=== PATIENT | male | born 1965 | race Caucasian/White ===

== ENCOUNTER 2020-06-02 09:54 | Inpatient (IN) | payer OTHER, SELFPAY ==
[~2020-06-02 09:54] MED LIST: Iopamidol 370 76% 100 ML VIAL ONE
[2020-06-02] MEDS ORDERED: Morphine 4 MG/ML VIAL ONE ×2 (10:08→15:54)
[2020-06-02 10:45] LABS: #Eosinphils 0.1 thou/uL (0.0-0.7); #Lymphocytes 1.6 thou/uL (1.20-3.40); #Monocytes 0.6 thou/uL (0.11-0.59); #Neutrophils 2.2 thou/uL (1.40-6.50); %Basophils 0.4 % (0.0-1.0); %Eosinophils 1.8 % (0.0-10.0); %Lymphocytes 36.1 % (21.0-51.0); %Monocytes 12.4 % (0.0-10.0); %Neutrophils 49.3 % (42.0-75.0); Hemoglobin 12.7 g/dL (14.0-18.0); Mean Corpuscular HGB CONC 32.6 g/dL (32.0-36.0); Mean Corpuscular Hemoglobin 33.9 pg (27.0-31.0); Mean Platelet Volume 7.5 fL (7.4-10.4); Platelet Count 196 thou/uL (130-400); RBC Distribution Width 11.9 % (11.5-14.5); Red Blood Cell (RBC) Count 3.74 mill/uL (4.70-6.10); White Blood Cell (WBC) Count 4.4 thou/uL (4.8-10.8)
--- NOTE | 2020-06-02 10:50 | RAD ---
Exam: Chest one view HISTORY:Dyspnea. Pain. Comparison: None FINDINGS: Cardiac silhouette:Enlarged. Aorta: Atherosclerotic and elongated. Pulmonary vessels: Normal Costophrenic angles: Clear LUNGS: Chronic changes are suspected, without mass or consolidation. Pneumothorax: None Osseous abnormalities: None Findings: There appears be a hiatal hernia, incompletely evaluated IMPRESSION: 1. Atherosclerosis 2. Hiatal hernia.
[2020-06-02 11:07] LABS: ALT (SGPT) 9 U/L (8-55); AST (SGOT) 16 U/L (5-34); Albumin 3.5 g/dL (3.5-5.0); Alkaline Phosphatase 79 U/L (40-110); Anion Gap 13 mmol/L (10-20); BUN (Urea Nitrogen) 12 mg/dL (8.4-25.7); Bilirubin, Total 1.4 mg/dL (0.2-1.2); Calc. Creatinine Clearance 0 mL/min (70-130); Calcium 9.2 mg/dL (7.8-10.44); Carbon Dioxide 24 mmol/L (22-29); Chloride 105 mmol/L (98-107); Estimated GFR-MDRD Greater than 90; Globulin 3.4 g/dL (2.4-3.5); Glucose 165 mg/dL (70-105); Lipase 17 U/L (8-78); Potassium 3.9 mmol/L (3.5-5.1); Protein, Total 6.9 g/dL (6.0-8.3); Sodium 138 mmol/L (136-145)
--- NOTE | 2020-06-02 11:48 | CT ---
EXAM: CT ABDOMEN AND PELVIS HISTORY: Distention. Pain. COMPARISON: None. Procedure: Multiple contiguous axial images were obtained and a CT of the abdomen and pelvis with IV contrast. C oronal reformats were performed. FINDINGS: Lower Chest: within normal limits. Vessels: Normal caliber aorta. Minimal atherosclerosis Heart: Normal Abdomen: Portal vein:Patent. There is evidence of splenic and gastroesophageal varices Gallbladder: Markedly distended. Liver: Cirrhotic changes to the liver. Heterogeneous attenuation suggesting areas of fatty infiltrati on and fatty sparing. A definite enhancing hepatic mass is not appreciated. Evaluation is limited due to underlying heterogeneity. If there is concern, abdomen MRI can be performed, especially given underlying cirrhosis. Pancreas: within normal limits. Spleen: Appropriate enhancement. Spleen is enlarged measuring 17.1 cm. Adrenals: within normal limits. Kidneys: Symmetric enhancement. No obstructive uropathy. Peritoneum: Extensive ascites. Bowel: Limited evaluation by the lack of oral contrast administration. There is evidence of previous bariatric surgical change. There is a moderate hiatal hernia. Multiple normal caliber small bowel loops. Normal ileocecal junction. Scattered fecal material in a nondistended, nondilated colon. Brigitte l caliber appendix. Mesentery and Retroperitoneum: No enlarged mesenteric or retroperitoneal lymph nodes. Abdominal Wall: within normal limits. Pelvis: Reproductive Organs: Reproductive organs are unremarkable. Pelvis: No mass, lymphadenopathy, free air or free fluid. Bladder: within normal limits. Bones: within normal limits. IMPRESSION: 1. Extensive ascites. 2. Distended gallbladder. Consider gallbladder ultrasound. 3. Cirrhosis with splenomegaly, splenic and gastroesophageal varices. 4. Moderate hiatal hernia. 5. Normal caliber appendix. 6. Heterogeneous attenuation of the liver. Abdomen MRI is recommended for better interrogation of hep atic parenchyma given underlying cirrhosis. Transcribed Date/Time: 06/02/2020 12:07 PM
[2020-06-02 12:55] LABS: Bilirubin Negative (Negative); Blood, Urine Negative (Negative); Clarity Clear (Clear); Glucose, Urine (Dipstick) Normal (Negative); Ketone, Urine Negative (Negative); Leukocyte Negative Leu/uL (Negative); Nitrite Negative (Negative); Protein, Urine (Dipstick) 20 mg/dL (Neg-Trace); pH, Urine 5.5 (5.0-9.0)
[2020-06-02 12:56] LABS: Specific Gravity, Urine Greater than 1.060 (1.002-1.036)
--- NOTE | 2020-06-02 14:30 | ULT ---
EXAM: US Gallbladder RUQ CLINICAL HISTORY: Distended gallbladder on recent CT. Evaluate for cholecystitis. COMPARISON: None Correlation: Abdomen and pelvic CT 06/02/2020 FINDINGS: Pancreas: Obscured by bowel gas Liver:Cirrhotic changes to the liver. Right hepatic lobe: 15.6 cm Gallbladder: Markedly distended. No sonographic evidence of cholelithiasis or sludge. Gallbladder wal l thickening measuring 0.42 cm. Chawla's sign:Negative Portal Vein: Patent. Appropriate directional flow Bile ducts: Probable evaluation. Right kidney: No hydronephrosis. Right kidney measures 8.9 cm in length. Additional findings: Extensive ascites. IMPRESSION: 1. Limited evaluation by marked ascites. 2. Distended gallbladder without definite evidence of cholecystitis. Thickening the gallbladder wall likely due to presence of ascites. If there is concern for acalculous cholecystitis, consider HIDA scan. 3. Suboptimal evaluation the common bile duct.
--- NOTE | 2020-06-02 17:30 | PDOC.HHP ---
Hospitalist HPI - History of Present Illness Abdominal distention History of Present Illness: This is a 54-year-old male patient with a history of alcoholic decompensated liver cirrhosis, Congestive heart failure, who presents with worsening abdominal distention. Patient was in his usual state of health when in the past few days he started feeling worsening distention which limits his ability to breathe. He also notes having ongoing pain in his lower abdomen which is tender to touch. Pain is about 8/10 in intensity, nonradiating, not associated with dysuria no apparent aggravating or reducing factors. He also notes upper abdominal pain with increasing distention worse with inspiration. He denies any fevers, nausea or vomiting. He also denies any diarrhea, melena stools or constipation. He ho wever notes that his urine is dark. However denies any dysuria frequency. He denies any cough or associated chest pain. He also notes that with worsening symptoms he has been feeling depressed. He however denies any suicidal ideation. He presented to the ED for evaluation. Of note, patient notes that he has had paracentesis about 2 months ago for which 4 L was drained. He states that he was discharged with significant residual ascitic fluid. At home he takes lactulose, Lasix and spironolactone for his ascites. He notes he has been adherent. The medications help however not been working. At presentation His vitals were within normal limits. Labs showed WBC of 4.4, hemoglobin 12.7 platelets of 196, bilirubin increased at 1.4, BNP 120, urine showed no indication of infection. CT abdomen showed extensive ascites and distended gallbladder with splenomegaly. Splenic and gastroesophageal varices. There was moderate hiatal hernia with heterogeneous attenuation of the liver. An abdominal MRI was recommended for further interrogation of his hepatic parenchyma. Chest x-ray revealed no acute cardiopulmonary events. Given severe lower abdominal pain in the ED, he was given morphine and some IV normal saline1 L. Hospitalist team was consulted for admission Hospitalist ROS - Review of Systems Constitutional: denies: fever, chills, sweats Respiratory: denies: cough, shortness of breath, hemoptysis, SOB with excertion Cardiovascular: reports: orthopnea. denies: chest pain, palpitations, paroxysmal noc. dyspnea Gastrointestinal: denies: nausea, vomiting, abdominal pain, diarrhea, constipation Genitourinary: denies: dysuria, frequency, incontinence, hematuria Neurological: denies: weakness, numbness Hospitalist History - Past Medical History Cardiac: reports: CHF Hepatobiliary: reports: Cirrhosis - Past Surgical History Past Surgical History: reports: no pertinent history Other Surgical History: Gastric Bypass in 2006 - Family History Family History: reports: cancer, diabetes mellitus - Social History Smoking Status: Current every day smoker Other Social History: Previous alcoholic. Current disease. - Exam General Appearance: awake alert, ill appearing Eye: PERRL, anicteric sclera ENT: normocephalic atraumatic, no oropharyngeal lesions, moist mucosa Neck: supple, no JVD, no thyromegaly, no lymphadenopathy Heart: RRR, no murmur, no gallops, no rubs, normal peripheral pulses Respiratory: no wheezes, no rales, no ronchi, no tachypnea Gastrointestinal - other findings: Grossly distended, lower abdominal tenderness with rebound. No guarding Extremities: no cyanosis, no clubbing, no edema Skin: normal turgor, no lesions Neurological: cranial nerve grossly intact, no weakness Musculoskeletal: normal tone, normal strength, no muscle wasting Psychiatric: normal affect, normal behavior, A&O x 3 Hospitalist Results - Labs Result Diagrams: 06/03/20 05:40 06/03/20 05:40 Lab results: WBC 4.4 thou/uL (4.8-10.8) L 06/02/20 10:28 Hgb 12.7 g/dL (14.0-18.0) L 06/02/20 10:28 Hct 38.9 % (42.0-52.0) L 06/02/20 10:28 MCV 104.0 fL (78.0-98.0) H 06/02/20 10:28 Plt Count 196 thou/uL (130-400) 06/02/20 10:28 Neutrophils % 49.3 % (42.0-75.0) 06/02/20 10:28 Sodium 138 mmol/L (136-145) 06/02/20 10:28 Potassium 3.9 mmol/L (3.5-5.1) 06/02/20 10:28 Chloride 105 mmol/L (98-107) 06/02/20 10:28 Carbon Dioxide 24 mmol/L (22-29) 06/02/20 10:28 BUN 12 mg/dL (8.4-25.7) 06/02/20 10:28 Creatinine 0.83 mg/dL (0.7-1.3) 06/02/20 10:28 Glucose 165 mg/dL (70-105) H 06/02/20 10:28 Calcium 9.2 mg/dL (7.8-10.44) 06/02/20 10:28 Total Bilirubin 1.4 mg/dL (0.2-1.2) H 06/02/20 10:28 AST 16 U/L (5-34) 06/02/20 10:28 ALT 9 U/L (8-55) 06/02/20 10:28 Alkaline Phosphatase 79 U/L (40-110) 06/02/20 10:28 Troponin I Less than 0.010 ng/mL (< 0.028) 06/02/20 10:28 B-Natriuretic Peptide 120.6 pg/mL (0-100) H 06/02/20 10:28 Serum Total Protein 6.9 g/dL (6.0-8.3) 06/02/20 10:28 Albumin 3.5 g/dL (3.5-5.0) 06/02/20 10:28 Lipase 17 U/L (8-78) 06/02/20 10:28 Urine Ketones Negative mg/dL (Negative) 06/02/20 12:15 Urine Blood Negative (Negative) 06/02/20 12:15 Urine Nitrite Negative (Negative) 06/02/20 12:15 Ur Leukocyte Esterase Negative Marisa/uL (Negative) 06/02/20 12:15 Hospitalist H&P A/P - Plan Plan: This is a 54-year-old male patient with a history of CHF, alcoholic liver ci rrhosis who presents with worsening abdominal distention. He is going to be admitted on account of abdominal distention concerning for SBP Severe ascites We will admit Paracentesis in the a.m. Fluid cells and differential and protein ordered. We will start ceftriaxone for empirical coveragediscontinue once not indicated. Close monitoring overnight. Possible SBP Start empiric antibiotics Follow-up on ascitic fluid analysis Decompensated liver cirrhosis We will continue on Lasix, lactulose and spironolactone We will consult GI in a.m. CHF EF unknown Not in acute evaluation Monitor closely. *Depression Patient feels depressed with worsening symptoms This is likely secondary to his disease state Start initial treatmentstart antidepressant if not relieved with management. DVT prophylaxisLovenox CODE STATUSfull code [email or web address]
[2020-06-02 17:32] VITALS: BMI 27.7
[2020-06-02] MEDS ORDERED: cefTRIAXone\\ROCEPHIN 1 GM in Sodium Chloride 0.9% 100 ML IVPB SCH (18:00)
[2020-06-02] MEDS: Morphine 2 MG/ML VIAL SLOW IVP PRN ×2 (21:04→23:09)
[2020-06-02] MEDS: Melatonin 3 MG TAB PO PRN (21:05)
[2020-06-03] MEDS: Morphine 2 MG/ML VIAL SLOW IVP PRN ×4 (03:37→22:16)
[2020-06-03 06:04] LABS: #Eosinphils 0.1 thou/uL (0.0-0.7); #Lymphocytes 1.4 thou/uL (1.20-3.40); #Monocytes 0.5 thou/uL (0.11-0.59); #Neutrophils 1.7 thou/uL (1.40-6.50); %Basophils 0.7 % (0.0-1.0); %Lymphocytes 37.7 % (21.0-51.0); %Monocytes 12.8 % (0.0-10.0); Hemoglobin 11.7 g/dL (14.0-18.0); Mean Corpuscular HGB CONC 32.9 g/dL (32.0-36.0); Mean Corpuscular Hemoglobin 33.3 pg (27.0-31.0); Platelet Count 183 thou/uL (130-400); RBC Distribution Width 11.9 % (11.5-14.5); White Blood Cell (WBC) Count 3.7 thou/uL (4.8-10.8)
[2020-06-03 06:10] LABS: INR-International Normal Ratio 1.3; PTT 35.1 sec (22.9-36.1); Prothrombin Time 16.6 sec (12.0-14.7)
[2020-06-03 06:23] LABS: Anion Gap 9 mmol/L (10-20); BUN (Urea Nitrogen) 12 mg/dL (8.4-25.7); Calc. Creatinine Clearance 146 mL/min (70-130); Calcium 8.6 mg/dL (7.8-10.44); Carbon Dioxide 24 mmol/L (22-29); Chloride 108 mmol/L (98-107); Estimated GFR-MDRD Greater than 90; Glucose 162 mg/dL (70-105); Potassium 4.1 mmol/L (3.5-5.1); Sodium 137 mmol/L (136-145)
[2020-06-03] MEDS ORDERED: FLU VACC QS2020-21(6MOS UP)/PF 60 MCG/0.5 ML SYRINGE IM ONE (09:00)
[2020-06-03] MEDS ORDERED: Enoxaparin Sodium 40 MG/0.4 ML SYRINGE SC SCH (09:00)
[2020-06-03] MEDS ORDERED: Calcium Carbonate 500 MG ChewTAB PO PRN (10:28)
[2020-06-03] MEDS ORDERED: Ondansetron ODT 4 MG TAB PO PRN (10:28)
[2020-06-03] MEDS ORDERED: Ondansetron PF 4 MG/2 ML Vial IVP PRN (10:28)
[2020-06-03 12:34] LABS: RBC Count-Automated (BF) 175 /cu.mm; WBC/Nucleated-Auto (BF) 437 uL
--- NOTE | 2020-06-03 12:36 | ULT ---
BILATERAL LOWER EXTREMITY VENOUS DOPPLER: DATE: 06/03/2020. PROVIDED CLINICAL HISTORY: Evidence for DVT. FINDINGS: Retana scale and color Doppler sonography with spectral analysis was performed of the bilateral common femoral, femoral, popliteal, posterior tibial, and greater saphenous veins bilaterally, demonstrating a normal sonographic appearance to each. IMPRESSION: No sonographic evidence for lower extremity deep venous thrombosis. POS: RALEIGH
[2020-06-03 12:59] LABS: BF Color Yellow; Body Fluid Source Ascites Body Fluid; Clarity Hazy (Clear); Tube # EDTA
[2020-06-03 13:06] LABS: BF Segmented Neutrophils 8 %; Cell Count Non Hematic 62 %; Lymphocytes 30 %
--- NOTE | 2020-06-03 13:26 | ULT ---
PROCEDURE ULTRASOUND-GUIDED ABDOMINAL PARACENTESIS: INDICATION: Cirrhosis with severe ascites. FINDINGS: Four-quadrant ultrasound shows large-volume ascites in all quadrants. Right mid abdomen was chosen for puncture under ultrasound guidance. Nine liters of yellowish clear ascitic fluid removed. Post procedure ultrasound revealed moderate residual ascites within the abdom en. PROCEDURE NOTE: Four-quadrant ultrasound shows large volume ascites. The patient presents for therapeutic and diagno stic paracentesis. The right abdomen laterally was chosen for puncture. The skin was prepped and draped in a sterile ma nner. Local anesthesia was administered with Lidocaine and bicarb. A tiny skin don was made with s calpel. A 5 Slovak catheter with needle in place was introduced under ultrasound guidance. The need le was removed and the catheter was advanced. The catheter was then attached to suction drainage. N ine liters of yellowish clear ascitic fluid removed. Post procedural ultrasound of the right lower q uadrant reveals small to moderate residual ascites. The patient tolerated the procedure well and was sent back to room in good condition. A sample of fl uid was sent to pathology for labs as ordered by physician. POS: CHENG
--- NOTE | 2020-06-03 14:08 | EKG ---
Test Reason : Blood Pressure : / mmHG Vent. Rate : 067 BPM Atrial Rate : 067 BPM P-R Int : 140 ms QRS Dur : 098 ms QT Int : 420 ms P-R-T Axes : 006 -02 045 degrees QTc Int : 443 ms Sinus rhythm with Fusion complexes Low voltage QRS Borderline ECG Confirmed by RUBI NUÑEZ ([id number]), news video editor ANAT WILSON ([id number]) on 06/03/2020 2:08:38 PM Referred By: Confirmed By:RUBI Constantino
[2020-06-03] MEDS ORDERED: traMADol HCl 50 MG TAB PO PRN (16:08)
[2020-06-03] MEDS: Albumin 25% 25 GM/100 ML BOT IVPB SCH ×2 (17:22→23:23)
[2020-06-03] MEDS ORDERED: Multivit, Therapeutic 1 TAB PO SCH (21:00)
[2020-06-03] MEDS ORDERED: Folic Acid 1 MG TAB PO SCH (21:00)
[2020-06-03] MEDS ORDERED: Thiamine 100 MG TAB PO SCH (21:00)
--- NOTE | 2020-06-03 21:16 | PDOC.HOSPP ---
- Subjective Encounter Date: 06/03/20 Encounter Time: 14:00 Subjective: Patient seen and examined for symptomatic ascites. Underwent paracentesis today. Abdominal pain improving. No fever or chills reported. - Objective Vital Signs & Weight: Vital Signs (12 hours) Temp Pulse Resp BP BP Pulse Ox 06/03/20 19:49 98.2 F 63 20 117/76 99 06/03/20 16:00 97.9 F 63 20 96/80 98 Weight Admit Weight 209 lb Weight 209 lb 15.845 oz I&O: 06/02/20 06/03/20 06/04/20 06:59 06:59 06:59 Intake Total 648 100 Balance 648 100 Result Diagrams: 06/03/20 05:40 06/03/20 05:40 Additional Labs: Abnormal Lab Results - Last 48 hrs 06/02/20 10:28: Total Bilirubin 1.4 H, Albumin/Globulin Ratio 1.0 L 06/02/20 10:28: WBC 4.4 L, RBC 3.74 L, Hgb 12.7 L, Hct 38.9 L, MCV 104.0 H, MCH 33.9 H, Monocytes % 12.4 H, Monocytes # 0.6 H 06/02/20 10:28: B-Natriuretic Peptide 120.6 H 06/02/20 12:15: Ur Specific [place] Greater than 1.060 H, Urine Urobilinogen 2.0 A 06/03/20 05:40: Chloride 108 H, Anion Gap 9 L 06/03/20 05:40: WBC 3.7 L, RBC 3.50 L, Hgb 11.7 L, Hct 35.4 L, MCV 101.0 H, MCH 33.3 H, Monocytes % 12.8 H 06/03/20 05:40: PT 16.6 H 06/03/20 10:40: Fluid Clarity Hazy H Radiology Reviewed by me: Yes (CT abdomenreviewed) Hospitalist ROS - Review of Systems Respiratory: denies: cough, dry, shortness of breath, hemoptysis, SOB with exce rtion, pleuritic pain, sputum, wheezing, other Cardiovascular: denies: chest pain, palpitations, orthopnea, paroxysmal noc. dyspnea, edema, light headedness, other - Medication Medications: Active Medications Generic Name Dose Route Start Last Admin Trade Name Freq PRN Reason Stop Dose Admin Albumin Human 25 gm 06/03/20 15:15 06/03/20 17:22 Albumin 25% 25 Gm/100 Ml Bot IVPB 06/04/20 15:16 25 gm Q8H PATTI Administration Folic Acid 1 mg 06/03/20 21:00 06/03/20 19:52 Folic Acid 1 Mg Tab PO 1 mg HS PATTI Administration Melatonin 3 mg 06/02/20 17:38 06/02/20 21:05 Melatonin 3 Mg Tab PO 3 mg HS PRN Administration Insomnia Morphine Sulfate 2 mg 06/03/20 16:02 06/03/20 18:32 Morphine 2 Mg/Ml Vial SLOW IVP 2 mg Q4H PRN Administration Severe Pain (7-10) Multivitamins 1 tab 06/03/20 21:00 06/03/20 19:53 Multivit, Therapeutic 1 Tab PO 1 tab HS PATTI Administration Thiamine HCl 100 mg 06/03/20 21:00 06/03/20 19:53 Thiamine 100 Mg Tab PO 100 mg HS PATTI Administration - Exam General Appearance: NAD Neck: supple, no JVD Heart: RRR, no gallops, no rubs, normal peripheral pulses Respiratory: no wheezes, no rales, no ronchi Gastrointestinal: soft, normal bowel sounds, no guarding, no rigidity (Decreased air entry at bases), distended Extremities: no cyanosis, no clubbing, 1+ LE edema Psychiatric: normal affect, A&O x 3 Hosp A/P - Plan DVT proph w/SCDs 54-year-old male with cirrhosis with portal hypertension presents with worsening abdominal pain/distention. His workup was consistent with symptomatic ascites. He underwent paracentesis today. SBP ruled out. Abdominal pain improving. Symptomatic ascites Chronic cirrhosis with portal hypertension Coagulopathy with hypoalbuminemia due to cirrhosis Splenic and Gastroesophageal varices Moderate hiatal hernia History of gastric bypass Chronic microcytic anemia Plan: S/p paracentesis. Discontinue ceftriaxone. Discontinue subcu Lovenox due to coagulopathy. Start IV albumin. Resume Lasix and spironolactone. Resume lac tulose. Counseled on fluid restriction. Add low-dose Inderal. Add multivitamin with thiamine, folic acid and multivitamin. Recheck labs in a.m. Probably discharge in a.m. if stable and okay with gastroenterology. Continue other medications as above. Full code verified with the patient. Patient makes his own decision with the help of his family.
[2020-06-03] MEDS: Melatonin 3 MG TAB PO PRN (22:02)
[2020-06-04] MEDS: Morphine 2 MG/ML VIAL SLOW IVP PRN ×3 (01:06→10:45)
[2020-06-04 06:14] LABS: #Eosinphils 0.1 thou/uL (0.0-0.7); #Lymphocytes 1.6 thou/uL (1.20-3.40); #Monocytes 0.6 thou/uL (0.11-0.59); #Neutrophils 1.6 thou/uL (1.40-6.50); %Basophils 0.9 % (0.0-1.0); %Eosinophils 1.6 % (0.0-10.0); %Lymphocytes 40.5 % (21.0-51.0); %Monocytes 14.3 % (0.0-10.0); %Neutrophils 42.8 % (42.0-75.0); Hemoglobin 11.9 g/dL (14.0-18.0); Mean Corpuscular HGB CONC 32.8 g/dL (32.0-36.0); Mean Corpuscular Hemoglobin 32.8 pg (27.0-31.0); Mean Corpuscular Volume 99.9 fL (78.0-98.0); Mean Platelet Volume 8.1 fL (7.4-10.4); Platelet Count 176 thou/uL (130-400); RBC Distribution Width 11.6 % (11.5-14.5); Red Blood Cell (RBC) Count 3.62 mill/uL (4.70-6.10); White Blood Cell (WBC) Count 3.9 thou/uL (4.8-10.8)
[2020-06-04 06:38] LABS: Phosphorus 4.4 mg/dL (2.3-4.7)
[2020-06-04 06:46] LABS: ALT (SGPT) Less than 7 U/L (8-55); AST (SGOT) 15 U/L (5-34); Albumin 3.3 g/dL (3.5-5.0); Alkaline Phosphatase 64 U/L (40-110); Anion Gap 10 mmol/L (10-20); BUN (Urea Nitrogen) 11 mg/dL (8.4-25.7); Bilirubin, Total 1.2 mg/dL (0.2-1.2); Calc. Creatinine Clearance 150 mL/min (70-130); Calcium 8.8 mg/dL (7.8-10.44); Carbon Dioxide 24 mmol/L (22-29); Chloride 109 mmol/L (98-107); Estimated GFR-MDRD Greater than 90; Globulin 2.7 g/dL (2.4-3.5); Glucose 93 mg/dL (70-105); Magnesium 1.8 mg/dL (1.6-2.6); Potassium 4.3 mmol/L (3.5-5.1); Sodium 139 mmol/L (136-145)
[2020-06-04] MEDS: Albumin 25% 25 GM/100 ML BOT IVPB SCH (07:09)
--- NOTE | 2020-06-04 08:25 | PRG ---
DATE OF SERVICE: 06/03/2020 SUBJECTIVE: This is a 54-year-old male, who was diagnosed with liver cirrhosis, ascites since September 2019. The patient has history of chronic alcohol abuse over the years. He quit drinking since September 2019. He has had large volume paracentesis off and on. Last one was at [place] in March of 2020. He was traveling to [facility] and was spending the night in [place]. He had abdominal pain and also became _dizzy and he almost passed out and they called the ambulance. They brought him to the hospital. He underwent a large volume paracentesis today and 9 L of fluid removed. He feels a whole lot better after the paracentesis. The ascitic fluid cell count shows 475 , but more than 60% is non-hematic cells. The_ polymorphs are few. He also had a Doppler study of the lower extremities and no deep vein thrombosis seen. OBJECTIVE: VITAL SIGNS: Temperature 98.4 degrees Fahrenheit, pulse is 71, blood pressure 106/66. GENERAL: He is mildly icteric. CARDIOVASCULAR: Normal heart sounds. LUNGS: Clear to auscultation. ABDOMEN: Soft and nontender. RECOMMENDATION: 1. IV albumin 20 g q.8 hours. 2. Continue diuretics. 3. Hopefully patient can be discharged home tomorrow. Job ID: [id number] [facility]
[2020-06-04] MEDS ORDERED: Propranolol 10 MG TAB PO SCH (09:00)
[2020-06-04] MEDS ORDERED: Cyanocobalamin (Vitamin B-12) 1,000 MCG TAB PO SCH (09:00)
[2020-06-04] MEDS ORDERED: Furosemide 40 MG TAB PO SCH (09:00)
[2020-06-04] MEDS ORDERED: Spironolactone 25 MG TAB PO SCH (09:00)
--- NOTE | 2020-06-04 10:32 | CON ---
DATE OF CONSULTATION: 06/02/2020 REASON FOR CONSULTATION: Abdominal pain, abdominal distention, ascites, recent weight gain. HISTORY OF PRESENT ILLNESS: Mr. Guy Munoz is a 54-year-old male, who lives in [place], [place]. 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 He started having some abdominal pain and felt faint and almost passed out. Called the ambulance and they brought him to the ER. The patient was diagnosed with liver cirrhosis in September of 2019, and he was hospitalized in [place]. He has history of chronic alcohol abuse with liver cirrhosis, probably from alcohol intake. Stopped drinking alcohol completely over the last 7 months. He is also on low-sodium diet, Lasix 40 once a day and Aldactone 100 once a day. Also given beta kenyatta, but he did not take it as he felt he had no high blood pressure and no need to take it. The patient's last paracentesis was done on April 10, 2020. He said that they drained about 4 liters of fluid, but he still had large_ascites. Although he asked them to have a repeat paracentesis; however, he got discharged from the hospital. The patient has been gaining weight slowly over the last two months. He has gained about 14 pounds. The patient had worsening ascites for the last several weeks. The patient states he started having some burning pain over the epigastric area and also felt faint last night. The patient has no fever. No history of GI bleeding. The patient had EGD done in September 2019 in [place]. As per the patient, there was no esophageal varices seen. The patient has no history of any hematochezia or rectal bleeding, vomiting blood. He is also on diuretics. He is also on lactulose 10 mL twice a day. He has one or two stools per day. He had no other relevant symptoms. ALLERGIES: SULFA. SOCIAL HISTORY: Does not smoke or drink alcohol. He used to drink alcohol until September 2019 and stopped drinking completely. There is a history of chronic alcohol abuse. No history of drug use. MEDICAL ILLNESSES: Liver cirrhosis, ascites, portal hypertension. No history of hypertension, diabetes, heart disease, lung disease. FAMILY HISTORY: Mother, she is 92 years old and was diagnosed to have breast cancer recently. There is no family history of liver disease. MEDICATIONS: Include lactulose, Lasix, spironolactone. SURGERIES: He has had a gastric bypass surgery in the early and lost weight. REVIEW OF SYSTEMS: CONSTITUTIONAL: History of weight gain recently because of increasing ascites. No fever, no chills, had poor appetite over the last several days. HEAD: No chronic headache. No seizure disorder. EYES: No diplopia or impaired vision. ENT: Normal. NECK: No stiffness or any limitation of movement. CARDIOVASCULAR: No chest pain. No palpitation. No dyspnea. LUNGS: No chronic coughing. No hemoptysis or dyspnea. ABDOMEN: Abdominal distention, ascites, abdominal pain. : No dysuria, hematuria. MUSCULOSKELETAL: Not known. ENDOCRINE: Not known. HEMATOLOGICAL: Not known. NEUROPSYCHIATRY: Not known. PHYSICAL EXAMINATION: GENERAL: Appears comfortable. No acute distress. VITAL SIGNS: Afebrile. Pulse is 68, blood pressure 112/70. NECK: Supple. No adenitis or thyromegaly noted. CARDIOVASCULAR SYSTEM: Normal heart sounds. LUNGS: Clear to auscultation except decreased air entry in both bases. ABDOMEN: Distended but soft to palpate. Abdomen is actually nontender except for over the_ hypogastric area. EXTREMITIES: Reveal trace edema. 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 LABORATORY DATA: CBC: WBC 4400, hemoglobin 12.7, hematocrit 38.9, MCV 104, platelet count is 196,000, polymorphs 49, lymphocytes 36, monocytes 12. Chemistry panel: Normal lytes, BUN is 12, creatinine 0.83, glucose 165, calcium 9.2. Bilirubin is 1.4, AST 16, ALT 9, alkaline phosphatase 79. BNP is 120.6, albumin 3.5. There is no PT or INR done. IMPRESSION: 1. A 54-year-old male with a history of alcohol abuse over the years. He had developed liver cirrhosis in September of 2019. He was hospitalized in [place] in September and was told to have liver cirrhosis. Stopped drinking completely. The patient has had a repeat paracentesis in March of 2020. He has been having abdominal distention over the last several weeks and has been gaining weight. Does not have regular GI doctor in [place]. 2. Gastric bypass. 3. Paracentesis x2 over the last several months. RECOMMENDATION: 1. Low-salt diet. 2. Agree with antibiotic therapy. 3. Ultrasound-guided paracentesis tomorrow and hopefully, he should feel better after paracentesis. I did talk to Mr. uMnoz that he needs to get a regular GI in [place], where he can have scheduled paracentesis every 3 to 4 weeks. He should also get back on a beta kenyatta, which was given to him. Job ID: [id number] [facility]D
[2020-06-04 11:13] VITALS: BP 113/70; TEMP 97.5
--- NOTE | 2020-06-07 11:47 | DIS ---
DATE OF ADMISSION: 06/03/2020 DATE OF DISCHARGE: 06/04/2020 DISCHARGE DISPOSITION: Home. FOLLOWUP: 1. Follow up with [facility] in 1 week. 2. Follow up with Gastroenterology Clinic in 1 to 2 weeks. ALLERGIES: THE PATIENT IS ALLERGIC TO SULFA. DISCHARGE MEDICATIONS: Propranolol 10 mg b.i.d. All other home medications were left unchanged. ALLERGIES: THE PATIENT IS ALLERGIC TO SULFA. HISTORY: The patient was seen and examined on the day of discharge. Denies any nausea or vomiting. Abdominal discomfort has significantly improved. No fever or chills reported. BRIEF HOSPITAL COURSE: The patient is a 54-year-old male with cirrhosis, presented to the emergency room with worsening abdominal distention. The pain was moderate to severe in intensity without any aggravating or relieving factor. There was no fever, nausea, vomiting, or diarrhea reported. The patient was admitted to the hospital with a diagnosis of severe and symptomatic ascites. He was empirically started on antibiotics that was later discontinued after paracentesis. SBP was ruled out. He underwent paracentesis, draining approximately 9 L of ascitic fluid. He also received IV albumin post paracentesis. Low-dose beta-blockers have been added. The patient was advised to monitor blood pressure on the daily basis and to maintain a log. He was also evaluated by Gastroenterology. He was advised to follow up with GI Clinic as outpatient. FINAL DIAGNOSES: 1. Severe symptomatic ascites, status post paracentesis. 2. Chronic cirrhosis with portal hypertension. 3. Coagulopathy with hypoalbuminemia due to cirrhosis. 4. Gastroesophageal varices on CT, started on low-dose beta-blockers. 5. Moderate hiatal hernia. 6. History of gastric bypass. 7. Abnormal LFTs due to cirrhosis. The patient understands the above plan of care. Please note that the patient's condition improved earlier than expected. Job ID: [id number] [facility]
== END 2020-06-04 12:08 | disposition home or self-care (01) | DRG 433 ==
LOC: ERS 09:54 → EDBD 09:54 → T4-B 15:48 → OBSVTOIN 06-03 15:57
PROVIDERS: ADMIT Student in an Organized Health Care Education/Training Program; ATTEND Student in an Organized Health Care Education/Training Program
PROC: 0W9G3ZZ Drainage of Peritoneal Cavity, Percutaneous Approach (ICD-10-PCS; principal; 2020-06-03)
DX: K74.60 Unspecified cirrhosis of liver (principal); R18.8 Other ascites; K76.6 Portal hypertension; I85.10 Secondary esophageal varices without bleeding; I50.9 Heart failure, unspecified; F17.200 Nicotine dependence, unspecified, uncomplicated; F32.9 Major depressive disorder, single episode, unspecified; K44.9 Diaphragmatic hernia without obstruction or gangrene; R79.1 Abnormal coagulation profile; D50.9 Iron deficiency anemia, unspecified; Z88.2 Allergy status to sulfonamides; Z79.899 Other long term (current) drug therapy; E88.09 Other disorders of plasma-protein metabolism, not elsewhere classified
CPT/HCPCS: 36415; 49083; 71045; 74177; 76705; 80048; 80053; 81003; 82042; 83690; 83735; 83880; 84100; 84157; 84484; 85025; 85060; 85610; 85730; 89051; 90471; 90662; 93005; 93970; 96365; 96372; 96374; 96375; 96376; G0008; G0378; J0696; J1650; J2270; J3490; P9047; Q9967